=== PATIENT | female | born 1985 | race Two or more races ===

== ENCOUNTER 2021-11-12 11:51 | Emergency (ER) | payer MEDICAID, OTHER ==
[~2021-11-12] VITALS: Ht 175.3 cm; Wt 85.9 kg
[2021-11-12] MEDS ORDERED: ACET-1158 PO (16:38)
[2021-11-12 17:20] VITALS: BP 107/76
== END 2021-11-12 17:31 | disposition home or self-care (01) ==
LOC: ER 11:51
DX: M54.32 Sciatica, left side (principal); Z76.0 Encounter for issue of repeat prescription

== ENCOUNTER 2022-03-31 16:35 | Emergency (ER) | payer MEDICAID ==
[~2022-03-31] VITALS: Ht 175.3 cm; Wt 85.9 kg
[2022-03-31 16:35] VITALS: BP 133/78
[~2022-03-31 16:35] MED LIST: ACET-1158 PO
== END 2022-03-31 20:49 | disposition left against medical advice (07) ==
LOC: ER 16:35 → EDBD 16:35 → ER 20:49
DX: J00 Acute nasopharyngitis [common cold] (principal); Z53.21 Procedure and treatment not carried out due to patient leaving prior to being seen by health care provider